=== PATIENT | female | born 1945 | race Caucasian/White ===

== ENCOUNTER 2017-06-09 05:14 | Day surgery (SDC) | payer MEDICARE, OTHER ==
[2017-06-07 15:19] LABS: HEMATOCRIT 45.2 % (36.0-48.0); HEMOGLOBIN 15.3 g/dL (12-16); MCH 30.4 pg (26.0-34.0); MCHC 33.8 g/dL (31.0-37.0); MCV 89.9 fL (80.0-100.0); MEAN PLATELET VOLUME 10.7 fL (7.4-10.4); RBC 5.03 10x6/uL (4.00-5.40); RDW 12.6 % (11.5-14.5)
[~2017-06-09] VITALS: Ht 165.1 cm; Wt 65.3 kg
[~2017-06-09 05:14] MED LIST: CLONAZAPAM; ESTRACE1 MG PO; FIORICET/ESGIC1 TAB PO; HYDROCODONE-APA1 TAB PO; KLONOPIN1 MG PO; PAXIL40 MG PO; TUMS X-STR300 MG PO; VITAMIN B650 MG PO; VITAMIN D31000 UNI2 PO; ZANAFLEX4 MG PO
[2017-06-09 05:56] VITALS: BP 183/82; Ht 165.1 cm; Wt 65.3 kg
[2017-06-09] MEDS ORDERED: HYDROCODON-ACE1 EAC7 PO (08:16)
[2017-06-09] MEDS ORDERED: DURICEF500 MG PO (08:16)
--- NOTE | 2017-06-09 10:06 | NUR ---
IV DC WITH CATHER TIP INTACT
--- NOTE | 2017-06-09 11:27 | OP ---
PATIENT NAME: MARY DURHAM MEDICAL RECORD: [id number] :49 [facility] DATE: SURGEON: NICOLLE MERCADO DO DATE OF OPERATION: 06/09/2017 PROCEDURE PERFORMED: Left distal radius removal of hardware. PREOPERATIVE DIAGNOSIS: Painful hardware, left distal radius. POSTOPERATIVE DIAGNOSIS: Painful hardware, left distal radius. INDICATIONS: Ms. Durham is a 71-year-old female who underwent a distal radius open reduction internal fixation over a year ago. She has been having pain at the distal radius side and peeling the hardware that was prominent and was painful to her, and she wished to have it taken out. She was seen back in January and originally scheduled for a surgery, but due to her 's health problems, she rescheduled for today. She was informed of the risks and benefits of procedure and verbally consented to the procedure in the office. DESCRIPTION OF PROCEDURE: The patient was given a block in the preoperative area by anesthesia and taken to the operating suite, laid in supine position, given general anesthetic. The left upper extremity was prepped and draped in sterile fashion. Tourniquet had been placed above the elbow prior to the draping. Once this was prepped and draped, a timeout was performed and everyone was in agreement of correct side, site, and patient. She was given Ancef preoperatively. After this was done, an Esmarch was used to exsanguinate the left upper extremity. Tourniquet was inflated and it was inflated for approximately 18 minutes. Incision began over the old incision over the flexor carpi radialis tendon. Careful dissection was made down to the plate itself. Scar tissue was divided. Once the plate was exposed all the screws were removed and the plate was taken off. The holes from the screws were then curetted as to stimulate healing of the bone. Once this was done, the tourniquet was let down, all the bleeders were coagulated with the bipolar. After this was done, the skin was closed with a 3-0 Vicryl in inverted interrupted fashion and then 5-0 Monocryl was run subcuticularly under the skin and then Dermabond was placed over that on the skin, Adaptic, 4 x 4s is placed and then Webril and then a short volar splint was placed on the wrist and overwrapped with Reinaldo wrap. After this was done, the patient was awakened and taken to recovery in stable condition. The tourniquet was let down at 18 minutes and blood loss was minimal. COMPLICATIONS: None. TRANSINT:[id number] Voice Confirmation ID: [id number] DOCUMENT ID: [id number] NICOLLE MERCADO DO at 1127 CC: [id number] DICTATION DATE: 06/09/17 08 PRODUCTION MANUFACTURING WORKER: 06/09/17 1042 [facility] 06/09/[address] [id number]
== END 2017-06-09 10:09 | disposition home or self-care (01) ==
LOC: D.OPS 05:14 → D.PAN 07:30 → D.OPS 07:30
PROVIDERS: Anesthesiology
DX: T84.84XA Pain due to internal orthopedic prosthetic devices, implants and grafts, initial encounter (principal); M25.532 Pain in left wrist; Z01.812 Encounter for preprocedural laboratory examination